=== PATIENT | female | born 1970 | race Caucasian/White ===

== ENCOUNTER 2018-09-28 18:00 | Emergency (ER) | payer OTHER ==
[~2018-09-28] VITALS: Ht 157.5 cm; Wt 67.0 kg
[~2018-09-28 18:00] MED LIST: INSU100V8 SQ; METF500T17; METF500T17 PO
[2018-09-28 18:06] VITALS: BP 142/87
== END 2018-09-28 19:20 | disposition home or self-care (01) ==
LOC: ED 19:05
DX: J02.8 Acute pharyngitis due to other specified organisms (principal); B97.89 Other viral agents as the cause of diseases classified elsewhere; H92.03 Otalgia, bilateral; E11.9 Type 2 diabetes mellitus without complications
CPT/HCPCS: 87081; 87880; 99283

== ENCOUNTER 2020-04-27 15:41 | Emergency (ER) | payer OTHER ==
[~2020-04-27] VITALS: Ht 154.9 cm; Wt 68.3 kg
[2020-04-27] MEDS ORDERED: SODIUM CHLORIDE FLUSH 10ML SYR IVF ONE ×2 (16:00→18:00)
--- NOTE | 2020-04-27 16:07 | NUR ---
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
--- NOTE | 2020-04-27 16:11 | NUR ---
PATIENT WALKED BACK FROM TRIAGE WITH CHIEF C/O ABD PAIN X1 DAY. PATIENT STATES THAT 2 DAYS AGO SHE SNEEZED REALLY HARD, AFTER WHICH SHE STARTED HAVING RIGHT LOWER BACK AND ABDOMINAL PAIN. SHE WOKE UP YESTERDAY MORNING AND HER ABD WAS BLOATED AND FIRM, AND SHE NOTICED SOME VAGINAL BLEEDING. PATIENT REPORTS HER PAIN LEVEL A 8/10, PATIENT TEARFUL, CONNECTED TO VITALS MACHINE.
[2020-04-27 16:48] LABS: BASOPHILS % (AUTO) 1 % (0-1); EOSINOPHILS % (AUTO) 1 % (1-7); LYMPHOCYTES % (AUTO) 43 % (22-44); MEAN CORPUSCULAR HEMOGLOBIN 29.7 pg (27.0-34.8); MEAN CORPUSCULAR HGB CONC 33.1 g/dL (32.4-35.8); MEAN PLATELET VOLUME 8.8 fL (7.4-10.4); MONOCYTES % (AUTO) 5 % (2-9); NEUTROPHILS % (AUTO) 50 % (42-75); PLATELET COUNT 324 x10^3/uL (130-400); RED BLOOD COUNT 5.26 x10^6/uL (3.82-5.3); RED CELL DISTRIBUTION WIDTH 13.5 % (9.6-15.2)
[2020-04-27 16:49] LABS: MICROSCOPIC AUTO
[2020-04-27 16:50] LABS: ALANINE AMINOTRANSFERASE 17 U/L (12-78); ALBUMIN 3.7 g/dL (3.4-5.0); ANION GAP 10 mmol/L (5-15); CALCIUM 8.2 mg/dL (8.5-10.1); CHLORIDE 109 mmol/L (98-107); CREATININE 0.57 mg/dL (0.55-1.02); MD NO
--- NOTE | 2020-04-27 16:51 | NUR ---
20 GAUGE IV STARTED R-AC, BLOOD COLLECTED AND SENT TO LAB. URINE SAMPLE WALKED TO LAB.
[2020-04-27 16:55] LABS: ALKALINE PHOSPHATASE 168 U/L (45-117); BILIRUBIN,TOTAL 0.2 mg/dL (0.2-1.0); TOTAL PROTEIN 8.3 g/dL (6.4-8.2)
--- NOTE | 2020-04-27 17:07 | NUR ---
REPORT RECEIVED FROM CHELSI AARON. PLAN OF CARE DISCUSSED
[2020-04-27] MEDS ORDERED: MORPHINE SULFATE 4 MG/ML, 1ML ONE ×2 (17:08→18:11)
[2020-04-27] MEDS ORDERED: ONDANSETRON 2MG/ML, 2ML ONE (17:09)
[2020-04-27] MEDS: MORPHINE SULFATE 4 MG/ML, 1ML IVPush PRN ×2 (17:15→18:20)
--- NOTE | 2020-04-27 17:16 | NUR ---
PATIENT MEDICATED PER EMAR, TOLERATED WELL
[2020-04-27] MEDS ORDERED: ONDANSETRON 2MG/ML, 2ML IVPush ONE (17:30)
[2020-04-27 17:59] LABS: ACETONE, SERUM Small (20mg/dL) (Negative)
[2020-04-27] MEDS ORDERED: SODIUM CHLORIDE 0.9% 1,000ML IV ONE (18:00)
[2020-04-27] MEDS ORDERED: POTASSIUM CHLORIDE 20 MEQ TAB.ER.PRT PO ONE (18:00)
[2020-04-27] MEDS ORDERED: POTASSIUM CHLORIDE 20 MEQ TAB.ER.PRT ONE (18:13)
--- NOTE | 2020-04-27 18:20 | NUR ---
PATIENT MEDICATED PER EMAR, TOLERATED WELL. VSS, NADN, CALL LIGHT IN REACH, ALL RESULTS BACK, PATIENT UP FOR RECHECK
[2020-04-27 19:05] VITALS: BP 114/72
--- NOTE | 2020-04-27 19:05 | NUR ---
Patient given discharge instructions and they have confirmed that they understand the instructions. Patient ambulatory with steady gait.
== END 2020-04-27 19:07 | disposition home or self-care (01) ==
LOC: ED 18:03
DX: M54.41 Lumbago with sciatica, right side (principal); R10.31 Right lower quadrant pain; R10.11 Right upper quadrant pain; E11.65 Type 2 diabetes mellitus with hyperglycemia; E87.6 Hypokalemia; R00.0 Tachycardia, unspecified
CPT/HCPCS: 36415; 74176; 80053; 81001; 82010; 84703; 85025; 93005; 96374; 96375; 96376; 99285; J2270; J2405; J7030

== ENCOUNTER 2021-03-16 16:36 | Emergency (ER) | payer OTHER ==
[~2021-03-16] VITALS: Ht 154.9 cm; Wt 76.0 kg
--- NOTE | 2021-03-16 16:45 | NUR ---
CALLED FOR TRIAGE, NO ANSWER
--- NOTE | 2021-03-16 16:52 | NUR ---
EKG DONE IN TRIAGE
[2021-03-16 17:25] LABS: BASOPHILS % (AUTO) 1 % (0-1); EOSINOPHILS % (AUTO) 0 % (1-7); LYMPHOCYTES % (AUTO) 28 % (22-44); MEAN CORPUSCULAR HEMOGLOBIN 30.6 pg (27.0-34.8); MEAN CORPUSCULAR HGB CONC 34.3 g/dL (32.4-35.8); MEAN PLATELET VOLUME 9.2 fL (7.4-10.4); MONOCYTES % (AUTO) 6 % (2-9); NEUTROPHILS % (AUTO) 65 % (42-75); PLATELET COUNT 337 x10^3/uL (130-400); RED BLOOD COUNT 5.56 x10^6/uL (3.82-5.3); RED CELL DISTRIBUTION WIDTH 13.1 % (9.6-15.2)
[2021-03-16] MEDS ORDERED: LORazepam 2 MG/ML, 1ML ONE (17:29)
[2021-03-16] MEDS ORDERED: ONDANSETRON 2MG/ML, 2ML ONE (17:29)
[2021-03-16] MEDS ORDERED: ONDANSETRON 2MG/ML, 2ML IVPush ONE (17:30)
[2021-03-16] MEDS ORDERED: LORazepam 2 MG/ML, 1ML IVPush ONE (17:30)
[2021-03-16] MEDS ORDERED: SODIUM CHLORIDE 0.9% 1,000ML IVBOLUS ONE (17:30)
[2021-03-16 17:37] LABS: ALANINE AMINOTRANSFERASE 25 U/L (12-78); ANION GAP 13 mmol/L (5-15); CALCIUM 9.3 mg/dL (8.5-10.1); CHLORIDE 102 mmol/L (98-107)
--- NOTE | 2021-03-16 17:37 | NUR ---
PATIENT TEARFUL, PATIENT REPORTS THAT SHE IS CRYING AND SCARED THAT SHE IS DYING. PATIENT REASSURED AND MEDICATED PER MAR, LIGHTS DIMMED FOR COMFORT.
[2021-03-16 17:42] LABS: ALKALINE PHOSPHATASE 115 U/L (45-117); BILIRUBIN,TOTAL 0.5 mg/dL (0.2-1.0); TOTAL PROTEIN 8.8 g/dL (6.4-8.2); TROPONIN I < 0.015 ng/mL (0.000-0.045)
[2021-03-16 17:49] LABS: ACETONE, SERUM Large (80mg/dL) (Negative)
[2021-03-16 18:39] LABS: MICROSCOPIC NOT IND
--- NOTE | 2021-03-16 18:59 | NUR ---
patient resting in room with lights dimmed, patient reports feeling a little better after medications but not 100%.
--- NOTE | 2021-03-16 19:10 | NUR ---
patient re-connect to fluids.
--- NOTE | 2021-03-16 20:46 | NUR ---
patient resting with eyes closed, chest rise and fall, will continue to monitor. 100ml remaining on 2nd ns bolus.
[2021-03-16 21:52] LABS: ANION GAP 7 mmol/L (5-15); CALCIUM 7.7 mg/dL (8.5-10.1); CHLORIDE 109 mmol/L (98-107); CREATININE 0.38 mg/dL (0.55-1.02)
[2021-03-16 23:24] VITALS: BP 104/62
== END 2021-03-16 23:27 | disposition home or self-care (01) ==
LOC: ED 17:53
DX: E11.65 Type 2 diabetes mellitus with hyperglycemia (principal); R55 Syncope and collapse; I10 Essential (primary) hypertension
CPT/HCPCS: 36415; 71045; 80048; 80053; 81003; 82010; 82803; 82962; 83690; 84484; 84703; 85025; 93005; 96361; 96374; 96375; 99285; J2060; J2405; J7030

== ENCOUNTER 2021-03-18 10:36 | Emergency (ER) | payer OTHER ==
[~2021-03-18] VITALS: Ht 154.9 cm; Wt 74.2 kg
[2021-03-18 11:23] LABS: FIO2 ROOM AIR %; PH, VENOUS 7.394 pH (7.320-7.420)
[2021-03-18 11:25] LABS: BASOPHILS % (AUTO) 1 % (0-1); EOSINOPHILS % (AUTO) 0 % (1-7); LYMPHOCYTES % (AUTO) 24 % (22-44); MEAN CORPUSCULAR HEMOGLOBIN 30.5 pg (27.0-34.8); MEAN CORPUSCULAR HGB CONC 34.3 g/dL (32.4-35.8); MEAN PLATELET VOLUME 9.1 fL (7.4-10.4); MONOCYTES % (AUTO) 5 % (2-9); NEUTROPHILS % (AUTO) 70 % (42-75); PLATELET COUNT 321 x10^3/uL (130-400); RED BLOOD COUNT 5.69 x10^6/uL (3.82-5.3); RED CELL DISTRIBUTION WIDTH 13.2 % (9.6-15.2)
[2021-03-18 11:36] LABS: CHLORIDE 103 mmol/L (98-107)
[2021-03-18 11:37] LABS: ALANINE AMINOTRANSFERASE 25 U/L (12-78); ALBUMIN 4.3 g/dL (3.4-5.0); ANION GAP 19 mmol/L (5-15); CALCIUM 9.2 mg/dL (8.5-10.1); CREATININE 0.56 mg/dL (0.55-1.02)
[2021-03-18 11:39] LABS: ALKALINE PHOSPHATASE 111 U/L (45-117); BILIRUBIN,TOTAL 0.7 mg/dL (0.2-1.0); TOTAL PROTEIN 8.9 g/dL (6.4-8.2)
[2021-03-18 12:34] LABS: ACETONE, SERUM Large (80mg/dL) (Negative)
--- NOTE | 2021-03-18 15:47 | NUR ---
ERP AT BEDSIDE
[2021-03-18] MEDS ORDERED: SODIUM CHLORIDE 0.9% 1,000 ML IV ONE (16:00)
[2021-03-18] MEDS ORDERED: SODIUM CHLORIDE 0.9% 1,000ML IVBOLUS ONE (16:00)
[2021-03-18] MEDS ORDERED: ONDANSETRON 2MG/ML, 2ML IVPush ONE (16:00)
[2021-03-18] MEDS ORDERED: SODIUM CHLORIDE FLUSH 10ML SYR IVF ONE (16:00)
[2021-03-18] MEDS ORDERED: LORazepam 2 MG/ML, 1ML IVPush ONE (16:00)
[2021-03-18] MEDS ORDERED: MECLIZINE 25 MG TABLET PO ONE (16:00)
[2021-03-18] MEDS ORDERED: MECLIZINE CHEWABLE 25 MG TAB ONE (16:03)
[2021-03-18] MEDS ORDERED: LORazepam 2 MG/ML, 1ML ONE (16:03)
[2021-03-18] MEDS ORDERED: ONDANSETRON 2MG/ML, 2ML ONE (16:03)
--- NOTE | 2021-03-18 16:54 | NUR ---
PATIENT REPORTS THAT DIZZINESS HAS RESOLVED AND THE PAIN IN HER NECK IS GONE TOO. PATIENT REPORTS FEELING BETTER. PATIENT PUT UP FOR RECHECK
[2021-03-18 18:03] VITALS: BP 120/70
== END 2021-03-18 18:06 ==
LOC: ED 15:23
DX: H81.11 Benign paroxysmal vertigo, right ear (principal); F41.1 Generalized anxiety disorder; R06.4 Hyperventilation; I10 Essential (primary) hypertension; E11.9 Type 2 diabetes mellitus without complications
CPT/HCPCS: 36415; 71045; 80053; 82010; 82803; 82962; 83690; 85025; 93005; 96361; 96374; 96375; 99285; J2060; J2405; J7030